=== PATIENT | male | born 1970 | race Caucasian/White ===

== ENCOUNTER 2017-01-22 07:19 | Emergency (ER) | payer OTHER ==
[2017-01-22 07:25] VITALS: BP 139/88; PULSE 74; TEMP 98; BMI 28.5
--- NOTE | 2017-01-22 07:27 | PDOC ---
History of Present Illness - General Chief Complaint: Eye Problem Stated Complaint: CHEMICAL SPILL Time Seen by Provider: 01/22/17 07:25 History Source: Patient Exam Limitations: No Limitations - History of Present Illness Initial Comments: 01/22/17 07:26 This patient is a 46 yo M presenting to the ER with a complaint of eye irritation Pt state states that he works with the [employer] While removing a body bag, some fluid splashed up and hit his eye He does not think that he was struck in the eye with any foreign body He notes pain and stinging, eye tearing He previously had Lasix surgery, does not wear contacts No irritation in any other location of the eye PMH: Asthma, Hypertension PSH: Meniscus repair Meds: please see MAR ALL: Levaquin, PCN, Shellfish Social: Denies alcohol, drug, cigarette use 01/22/17 07:27 GENERAL/CONSTITUTIONAL: No: fever, chills, weakness, loss of appetite. HEAD, EYES, EARS, NOSE AND THROAT: No: change in vision, ear pain, discharge, sore throat, throat swelling. SKIN: No: lesions, pallor, rash or easy bruising. NEUROLOGIC: No: headache, vertigo, paresthesias, weakness GENERAL: The patient is in no acute distress. HEAD: Normal with no signs of trauma. EYES: PERRLA, EOMI, sclera non injected, Visual Acquity: 20/30 left eye, 20/50 right eye, no swelling, Fluroscein no uptake. SKIN: Warm, Dry, normal turgor, no rashes or lesions noted. 01/22/17 16:17 Past History - Past Medical History Allergies/Adverse Reactions: Allergies Allergy/AdvReac Type Severity Reaction Status Date / Time levofloxacin [From Levaquin] Allergy Rash Verified 01/22/17 07:22 Penicillins Allergy Verified 01/22/17 07:22 shellfish derived Allergy Verified 01/22/17 07:22 Home Medications: Ambulatory Orders Albuterol 0.083% Nebulizer Tammie [Ventolin 0.083% Nebulizer Soln -] 1 neb NEB Q4H PRN 07/17/12 Lisinopril [Prinivil] 10 mg PO DAILY 07/17/12 Montelukast Na [Singulair -] 10 mg PO HS 07/17/12 Budesonide/Formeterol Fumarate [SYMBICORT 80/4.5mcg -] 1 inh PO DAILY 01/22/17 Erythromycin 0.5% Eye Ointment [Erythromycin 0.5% Eye Ointment -] 1 applic OD Q6H #1 tube 01/22/17 Anemia: No Asthma: Yes Cancer: No Cardiac Disorders: No CVA: No COPD: No Dementia: No Diabetes: No Dialysis: No GI Disorders: No Disorders: No HTN: Yes Hypercholesterolemia: No HIV: No Kidney Stones: No Liver Disease: No Seizures: No Thyroid Disease: No - Surgical History Orthopedic Surgery: Yes (R. Knee, miniscus tear repair) - Immunization History Td Vaccination: (UNKNOWN) Immunization Up to Date: Yes - Psycho/Social/Smoking Cessation Hx Anxiety: No Suicidal Ideation: No Smoking Status: No Smoking History: Never smoked Have you smoked in the past 12 months: No Number of Cigarettes Smoked Daily: 0 If you are a former smoker, when did you quit?: 15 years ago Hx Alcohol Use: No Drug/Substance Use Hx: No Substance Use Type: None Hx Substance Use Treatment: No Medical Decision Making - Medical Decision Making 01/22/17 07:30 Right eye irrigated with 500 cc Normal saline after tetracaine No signs of corneal abrasion Pt to follow up with Ophthalmology today Will discharge on erythromycin ointment 01/22/17 16:20 *DC/Admit/Observation/Transfer Diagnosis at time of Disposition: Eye irritation - Discharge Dispostion Disposition: HOME Condition at time of disposition: Stable Admit: No - Prescriptions Prescriptions: Erythromycin 0.5% Eye Ointment [Erythromycin 0.5% Eye Ointment -] 1 applic OD Q6H #1 tube - Referrals Referrals: Winifred Wilkinson MD [Staff Physician] - - Patient Instructions Printed Discharge Instructions: How to Use Eye Ointments and Gels, DI for Eye Pain, DI for Chemical Eye Burn Additional Instructions: [place] Thank you for coming in to the ER today Please follow up with the eye doctor within 1-2 days Please use the antibiotics ointment prescribed for your right eye Please return to the ER for any other concerns or complaints - Post Discharge Activity Work/School Note: Back to Work
== END 2017-01-22 07:49 | disposition home or self-care (01) ==
LOC: FER 07:19
DX: H57.8 Other specified disorders of eye and adnexa (principal); I10 Essential (primary) hypertension; J45.909 Unspecified asthma, uncomplicated; Z87.891 Personal history of nicotine dependence; X58.XXXA Exposure to other specified factors, initial encounter; Y93.89 Activity, other specified; Y92.9 Unspecified place or not applicable; Y99.0 Civilian activity done for income or pay
CPT/HCPCS: 99281-25